=== PATIENT | male | born 1995 | race Two or more races ===

== ENCOUNTER 2022-07-09 09:50 | Outpatient (CLI) | payer OTHER ==
--- NOTE | 2022-07-09 10:33 | SLEEP CARE CONSULTATION ---
Information from patient questionnaire entered by Linh Brower. I have reviewed and concur with the information entered by Linh Brower. This document represents the service I personally performed and the decisions made by me, Estrella Valdes ARNP. History of Present Illness Service Date and Time: 07/09/2022 0950 Reason for Visit: New patient Chief Complaint: reports: Unrefreshed sleep, Snoring, Excessive daytime sleepiness, Observed pauses in breathing, Fatigue, Frequent awakenings at night Date of Onset: 2016 Usual bedtime: 1100 PM; weekends 2 AM Time it takes to fall asleep: 10-30 min Snores at night: Yes Observed to quit breathing while asleep: Yes Sleeps alone due to snoring: No Number of times waking at night: 1-2 Reasons for waking at night: reports: Snoring, Gasping for air, Bathroom, Other (tossing). denies: Choking Toss, Turn, or Twitch while sleeping: Yes (constantly) Recalls having dreams: No Usually gets out of bed at: [id number] am; weekends 0900 Feels refreshed in the morning: No ([place] on boat) Morning headache: Yes (1-2 times a month; resolves 9-10 am) Sleepy or fatigued during the day: Yes (if he sits down to watch TV he will fall asleep) Ever fallen asleep while driving: Yes (drowsy driving but no accidents; not as passenger) Takes day naps: No Dreams during day naps: No Prior sleep studies: No Additional HPI information: I had the pleasure of seeing AIDE GONZALEZ today regarding the possibility of him having a sleep disorder. His current complaints are excessive daytime sleepiness, fatigue, frequent night awakenings, observed pauses in breathing, snoring and unrefreshed sleep. His has told him that he snores loudly and will have pauses in breathing. In 2017 he gained about 60 pounds and he was waking up gasping for air. He has since lost 25 pounds and this has improved. He states that he feels better when he gets less than 7 hours of sleep at night. But, if he only sleeps 6 hours he will have to get more sleep on the next day because he gets more tired. - Parasomnia Symptoms Ever been unable to move upon waking from sleep: No Walks in sleep: No Talks in sleep: Yes Ever acted out dreams in sleep: No Ever felt weak in the knees when startled or emotional: No Bothered by creepy, crawly, restless sensations in legs: No Problems with memory or concentration: Yes (both; does have a lot of problem concentrating on tasks, sometimes forgets ) Subjective Initial [place] Sleepiness Scale score: 14 (06/2022) Past Medical History Past Medical History: reports: Hypothyroidism (thyroid removed due to cancer), Other (cancer-in remission) Social History The patient's occupation is a AM. Patient is and lives in [place]. Have you smoked in the past 12 months: No Cigarettes per day (20/pack): 5 Years of smokin Quit date: 2016 Smoking Pack Years: 0.6 Alcohol use: No Caffeine use: Yes Caffeine amount and frequency: 1 energy drink, 1-2 soda daily; takes preworkout 3 days a week Family History Family history of sleep disordered breathing: Yes Family Hx Sleep Apnea: Father: Snoring, Sleep apnea - Treated, Grandparent: Snoring Allergies and Home Medications Known drug allergies: Yes Drug allergies reviewed: Yes (NKDA) Home medication list reviewed: Yes Allergy and home medication list: Medications: Synthroid 175 mcg Review of Systems Weight loss over past 5 years: 25 Cardiovascular: denies: high blood pressure Respiratory: denies: shortness of breath Gastrointestinal: reports: heartburn Neurological: denies: headaches, head trauma Psychiatric: reports: Attention Deficit Hyperactivity, depression Ear/Nose/Throat: reports: nose bleeds (happens randomly, 1-2 times a month), tonsillectomy, wisdom teeth removed Endocrine: reports: thyroid disease, sluggishness, unexplained weakness Musculoskeletal: reports: joint pain, neck pain, muscle pain or cramping Immunologic: denies: allergies to food or environment Physical Exam Vital signs obtained and entered by: Bernice Govea, pressing department supervisor Pressure: 124/88 Cuff size: regular (left arm) Heart Rate: 72 O2 Saturation: 97 Height: 5 ft 6 in Weight: 216 lb Body Mass Index: 34.8 BMI Classification: Obese Neck circumference: 16 (inches) Mouth and throat: normal Soft palate: long Hard palate: normal Uvula: normal Uvula visualization: 100% Mallampati Class I Tongue: normal in size Tonsils: absent bilaterally Neck: normal w/o lymphadenopathy or thyromegaly Heart: regular rate and rhythm Lungs: clear bilaterally Impression and Plan 1. Suspected Obstructive Sleep Apnea-Hypopnea Syndrome, as suggested by a history of loud and irregular snoring, observed cessation of breath while asleep, gasping or choking in sleep, frequent awakening during the night, unrefreshed sleep, cognitive impairment, and excessive daytime sleepiness. Narrow oropharynx and obesity are common predisposing factors for obstructive sleep apnea-hypopnea syndrome. I recommend proceeding to polysomnography to confirm the diagnosis and to assess severity. If the patient has significant sleep disordered breathing, a manual CPAP titration study will also be performed to find the optimal treatment pressure. I informed the patient of what the sleep studies involve and after some discussion, obtained agreement to proceed. The pathophysiology of obstructive sleep apnea-hypopnea syndrome was discussed with the patient and health risks of cardiovascular and cerebrovascular disease if not treated. Risks of drowsy driving discussed in detail and patient advised to avoid long distance driving and to socket puller at the first sign of drowsiness. Patient agreed to plan. * Schedule polysomnography * Avoid long distance driving or driving when feeling sleepy. * Avoid alcohol, sedative and muscle relaxant around bedtime. * Attempt to lose weight. * Review instructions provided by trained office staff on how to prepare for the sleep study. * Return for follow-up after sleep study completed. Counseling Topics: Weight loss health impact Visit Type: In Office Time Spent with Patient (minutes): 32 Provider Statement: I spent 100% of the Face to Face Visit with the patient with greater than 50% spent counseling the patient and coordination of care.
[2022-07-09 10:34] VITALS: BP 124/88
== END 2022-07-09 09:51 | disposition home or self-care (01) ==
LOC: SC 09:50
PROVIDERS: ATTEND Nurse Practitioner Family
DX: R06.83 Snoring (principal); G47.8 Other sleep disorders; R06.81 Apnea, not elsewhere classified; G47.10 Hypersomnia, unspecified; R53.83 Other fatigue; E66.9 Obesity, unspecified; Z68.34 Body mass index [BMI] 34.0-34.9, adult; Z87.891 Personal history of nicotine dependence
CPT/HCPCS: 99203; 99212

== ENCOUNTER 2022-07-30 08:25 | Outpatient (CLI) | payer OTHER | END 2022-07-30 08:26 | disposition home or self-care (01) | LOC: SC 08:25 | PROVIDERS: ATTEND Nurse Practitioner Family | DX: G47.33 Obstructive sleep apnea (adult) (pediatric) (principal); R09.02 Hypoxemia | CPT/HCPCS: 95806 ==

== ENCOUNTER 2022-08-20 10:34 | Outpatient (CLI) | payer OTHER ==
[2022-08-20 11:17] VITALS: BP 112/62
--- NOTE | 2022-08-20 11:17 | SLEEP CARE CONSULTATION ---
Information from patient questionnaire entered by Linh Brower. I have reviewed and concur with the information entered by Linh Brower. This document represents the service I personally performed and the decisions made by , Estrella Valdes ARNP. History of Present Illness Service Date and Time: 08/20/2022 1034 Initial [place] Sleepiness Scale score: 14 (06/2022) Current [place] Sleepiness Scale score: 15 (08/20/22) Additional HPI information: AIDE GONZALEZ returns for follow up and results of the recently performed home sleep study. I explained the pathophysiology behind obstructive sleep apnea. We then spent quite a bit of time discussing different treatment options. For mild obstructive sleep apnea, surgery and oral appliance are alternatives to nasal CPAP therapy but in moderate or severe cases, nasal CPAP is the most effective and reliable treatment. Because apnea is primarily in supine position, then positional management therapy could be effective. Methods discussed such as positioning with pillows to prevent supine sleep. I reviewed the impact of weight changes on sleep apnea and strongly recommended losing weight. After some discussion, the patient opted to go with the nasal CPAP therapy. Nasal autoCPAP set at 4-15 cmH20 will be ordered with rationale explained. A manual titration study will be ordered if unable to find optimal pressure with office adjustments. I explained how CPAP machine works and what to expect when using the machine. Using CPAP every night in order to get used to it was emphasized. Patient advised to put CPAP mask on before getting into bed so as not to fall asleep w ithout CPAP. To assist acclimation to CPAP use, it could also be used for a short time during day while reading or watching TV. The patient was instructed to call the CPAP supplier to discuss any mechanical problem that may occur. If the mask given is uncomfortable or is difficult to keep on through the night even with adjustment, contact the CPAP supplier as many will replace with another mask style if notified before 30 days. If snoring or perceives is not getting enough air or too much air from the machine, notify this office. Patient does not drink alcohol. Patient was cautioned about risks of drowsy driving until sleepiness symptoms resolve. Sleep Study - Results Type of Sleep Study: Home sleep study (COMPLETED 07/30/22) Prior sleep studies: No Polysomnography/Home Sleep Study results: Physician Impression: The quality of the study is good. The length of the study is adequate (> 240 minutes). Please also see the tabulated and graphic data. 1. Obstructive Sleep Apnea-Hypopnea (ICD-10 G47.33), mild, with an AHI of 7.7/hr and allie SaO2 of 89%. During the study, the patient had 15 apneas (15 obstructive, 0 central, 0 mixed) and 58 hypopneas. The longest episode lasted 130.0 seconds. The respiratory events occurred almost exclusively during supine sleep (supine AHI was 13.3 and non-supine, 2.13). 2. Hypoxemia (ICD-10 R09.02), minimal, with the lowest oxygen saturation of 89 % and 0.9 minutes with SaO2 under 90%. Baseline oxygen saturation was normal (Average oxygen saturation was 95%). Allergies and Home Medications Known drug allergies: No Drug allergies reviewed: Yes Home medication list reviewed: Yes (no changes) Review of Systems Review of systems same as previous: Yes (no changes) Physical Exam Vital signs obtained and entered by: LINH Neal MA Blood Pressure: 112/62 (LEFT ARM) Cuff size: regular Heart Rate: 64 O2 Saturation: 96 Height: 5 ft 6 in Weight: 215 lb 9.6 oz Body Mass Index: 34.7 BMI Classification: Obese Impression and Plan 1. Obstructive Sleep Apnea-Hypopnea Syndrome, mild, with lowest oxygen saturation of 89%. Obviously this is the cause of the patients symptoms of unrefreshed sleep, and excessive daytime sleepiness. As mentioned above, the patient will be started on nasal autoCPAP therapy with pressure set at 4-15 cmH2 O. Compliance guidelines also reviewed. A copy of compliance guidelines will be given for reference at check out. Because the apnea is more severe supine, I instructed to avoid sleeping supine using pillow positioning until able to start CPAP use. * Nasal auto CPAP therapy, pressure at 4-15 cm H2O. * Attempt to lose weight. * Avoid alcohol consumption near bedtime. * Avoid supine sleep until using CPAP. * The patient is again cautioned about driving until sleepiness completely resolves. * Return one month after CPAP obtained. I will assess response to therapy and compliance at that time. Counseling Topics: Sleeping position, Weight loss health impact Visit Type: In Office Time Spent with Patient (minutes): 20 Provider Statement: I spent 100% of the Face to Face Visit with the patient with greater than 50% spent counseling the patient and coordination of care.
== END 2022-08-20 10:35 | disposition home or self-care (01) ==
LOC: SC 10:34
PROVIDERS: ATTEND Nurse Practitioner Family
DX: G47.33 Obstructive sleep apnea (adult) (pediatric) (principal); E66.9 Obesity, unspecified; Z68.34 Body mass index [BMI] 34.0-34.9, adult
CPT/HCPCS: 99212; 99213

== ENCOUNTER 2023-09-07 10:10 | Outpatient (CLI) | payer OTHER ==
--- NOTE | 2023-09-10 17:22 | Ultrasound Report ---
PROCEDURE: Soft Tissue Head or Neck INDICATIONS: NECK LUMP TECHNIQUE: Real-time scanning was performed of the thyroid gland, with image documentation. COMPARISON: 10/06/2022 FINDINGS: The thyroid is absent. There are bilateral cervical chain lymph nodes in the right medial chain. Thes e maintain a normal reniform shape and fatty hilum. These measure no greater than 1.9 cm in maximum d iameter. These have slightly grown from prior. IMPRESSION: Slight interval growth of the right medial cervical chain lymph nodes. These maintain no rmal reniform shape and fatty hilum, without irregular cortex to suggest monique metastases. Reviewed by: Porfirio Martin MD on 09/10/2023 5:21 PM PDT Approved by: Porfirio Martin MD on 09/10/2023 5:21 PM PDT Station ID: [id number]
== END 2023-09-07 10:11 | disposition home or self-care (01) ==
LOC: DI 10:10
PROVIDERS: ATTEND Nurse Practitioner Family
DX: Z98.890 Other specified postprocedural states (principal); R22.1 Localized swelling, mass and lump, neck